=== PATIENT | female | born 1970 | race Caucasian/White ===

== ENCOUNTER 2017-02-19 18:12 | Inpatient (IN) | payer MEDICAID ==
[~2017-02-19] VITALS: Ht 160 cm; Wt 81.6 kg
[2017-02-19 18:12] VITALS: BP_SYST 149
[~2017-02-19 18:12] MED LIST: CLON0.5T4 PO; FLUO40CA8 PO; IBUP-1969 PO; OMEP40CA PO
[2017-02-19] MEDS ORDERED: ONDANSETRON HCL 4 MG/2 ML VIAL IVP ONE (19:00)
[2017-02-19] MEDS ORDERED: DIPHENHYDRAMINE INJ 50 MG/ML VIAL IVP ONE ×2 (19:00→21:15)
[2017-02-19] MEDS ORDERED: KETOROLAC TROMETHAMINE 30 MG VIAL IVP ONE ×2 (19:00→21:15)
[2017-02-19 19:31] LABS: BILIRUBIN,URINE NEGATIVE (NEGATIVE); BLOOD, URINE NEGATIVE (NEGATIVE); CLARITY/URINE SL HAZY (CLEAR); COLOR,URINE YELLOW (YELLOW); GLUCOSE,URINE NEGATIVE (NEGATIVE); KETONES,URINE NEGATIVE (NEGATIVE); LEUKOCYTE ESTERASE ,URINE NEGATIVE (NEGATIVE); NITRITE, URINE NEGATIVE (NEGATIVE); PROTEIN URINE NEGATIVE (NEGATIVE); UROBILINOGEN,URINE 0.2 (0.2-1.0)
[2017-02-19 19:38] LABS: BASOPHILS # (AUTO) 0.1 K/uL (0.0-0.2); BASOPHILS % (AUTO) 0.9 % (0.0-2.0); EOSINOPHILS # (AUTO) 0.2 K/uL (0.0-0.4); HEMATOCRIT 42.2 % (36-48); HEMOGLOBIN 13.7 g/dL (12.0-16.0); LYMPHOCYTES # (AUTO) 2.8 K/uL (1.0-5.5); MEAN CORPUSCULAR HEMOGLOBIN 27 pg (27-31); MEAN CORPUSCULAR HGB CONC 32 % (32-36); MEAN CORPUSCULAR VOLUME 83 fL (79.0-98.0); MONOCYTES # (AUTO) 0.7 K/uL (0.0-1.0); MONOCYTES % (AUTO) 8.4 % (1.7-9.3); NEUTROPHILS # (AUTO) 4.6 K/uL (1.8-7.7); NEUTROPHILS % (AUTO) 55.7 % (40.0-70.0); PLATELET COUNT (AUTO) 253 K/uL (130-430); RED BLOOD CELL COUNT(AUTO) 5.08 MIL/uL (4.2-6.2); RED CELL DISTRIBUTION WIDTH 12.6 % (9.0-15.0); WHITE BLOOD COUNT (AUTO) 8.4 K/uL (4.8-10.8)
[2017-02-19 19:41] LABS: CALCIUM 9.5 mg/dL (8.4-11.0); CREATININE 0.75 mg/dL (0.55-1.30); POTASSIUM 3.9 mmol/L (3.5-5.1)
[2017-02-19 19:45] LABS: ALBUMIN 3.8 g/dL (3.4-4.8); TOTAL BILIRUBIN 0.2 mg/dL (0.0-1.0); TOTAL PROTEIN, SERUM 7.9 g/dL (6.4-8.3)
[2017-02-19 19:45] LABS: BACTERIA,URINE FEW /HPF (None Seen); RBC,URINE NONE SEEN /HPF (0-3)
[2017-02-19 19:46] LABS: MUCUS,URINE None Seen /LPF (None Seen)
[2017-02-19 19:47] LABS: INR 0.9 (0.8-1.2); PROTHROMBIN TIME 9.9 SECS (9.5-12.5)
[2017-02-19] MEDS ORDERED: MORPHINE 4 MG/ML INJ. SYRINGE IVP ONE (21:15)
[2017-02-19] MEDS ORDERED: BUSP5TAB3 PO (22:15)
[2017-02-19] MEDS ORDERED: BUSP5TAB3 (22:15)
[2017-02-19] MEDS ORDERED: GABA-529 PO (22:15)
[2017-02-19] MEDS ORDERED: DIAZ5TAB4 PO (22:15)
[2017-02-19] MEDS ORDERED: MIRT15TA7 PO (22:15)
[2017-02-19 22:45] VITALS: BP_SYST 126
[2017-02-19] MEDS ORDERED: MORPHINE 4 MG/ML INJ. SYRINGE IVP PRN ×2 (23:30→23:45)
[2017-02-19] MEDS ORDERED: MORPHINE 2 MG/ML INJ. SYRINGE IVP PRN (23:30)
[2017-02-19] MEDS ORDERED: MIRT45TA5 PO (23:31)
[2017-02-19] MEDS ORDERED: MAG-AL HYDROX/SIMETH 30 ML UDC PO PRN (23:45)
[2017-02-19] MEDS ORDERED: MIRTAZAPINE 15 MG TABLET PO PRN (23:45)
[2017-02-19] MEDS ORDERED: IBUPROFEN 600 MG TABLET PO SCH (23:45)
[2017-02-19] MEDS ORDERED: ACETAMINOPHEN 325 MG TABLET PO PRN (23:45)
[2017-02-19] MEDS ORDERED: DIAZEPAM 5 MG TABLET (VALIUM) PO PRN (23:45)
[2017-02-19] MEDS ORDERED: clonazePAM 0.5 MG TABLET PO SCH (23:45)
[2017-02-19] MEDS ORDERED: ONDANSETRON HCL 4 MG/2 ML VIAL IVP PRN (23:45)
[2017-02-19] MEDS: PANTOPRAZOLE SODIUM 40 MG TAB PO SCH (23:59)
[2017-02-20 00:26] VITALS: BP_SYST 123
[2017-02-20 05:07] VITALS: BP_SYST 99
[2017-02-20] MEDS: ACETAMINOPHEN 325 MG TABLET PO PRN ×2 (05:19→14:24)
[2017-02-20 07:10] LABS: ALBUMIN 3.2 g/dL (3.4-4.8); CALCIUM 8.8 mg/dL (8.4-11.0); CREATININE 0.8 mg/dL (0.55-1.30); FREE T4 (FREE THYROXINE) 0.6 ng/dL (0.6-1.6); POTASSIUM 3.5 mmol/L (3.5-5.1); THYROID STIMULATING HORMONE 2.65 uIu/mL (0.34-4.82); TOTAL BILIRUBIN 0.5 mg/dL (0.0-1.0); TOTAL PROTEIN, SERUM 6.9 g/dL (6.4-8.3)
[2017-02-20 07:21] LABS: BASOPHILS % (AUTO) 0.6 % (0.0-2.0); EOSINOPHILS # (AUTO) 0.1 K/uL (0.0-0.4); EOSINOPHILS % (AUTO) 1.9 % (0.0-4.0); HEMATOCRIT 39.8 % (36-48); HEMOGLOBIN 13.1 g/dL (12.0-16.0); LYMPHOCYTES # (AUTO) 2.3 K/uL (1.0-5.5); LYMPHOCYTES % (AUTO) 41.4 % (20.5-51.5); MEAN CORPUSCULAR HEMOGLOBIN 27 pg (27-31); MEAN CORPUSCULAR HGB CONC 33 % (32-36); MEAN CORPUSCULAR VOLUME 82 fL (79.0-98.0); MONOCYTES # (AUTO) 0.4 K/uL (0.0-1.0); MONOCYTES % (AUTO) 7.6 % (1.7-9.3); NEUTROPHILS # (AUTO) 2.9 K/uL (1.8-7.7); NEUTROPHILS % (AUTO) 48.5 % (40.0-70.0); PLATELET COUNT (AUTO) 252 K/uL (130-430); RED BLOOD CELL COUNT(AUTO) 4.84 MIL/uL (4.2-6.2); RED CELL DISTRIBUTION WIDTH 13.1 % (9.0-15.0); WHITE BLOOD COUNT (AUTO) 5.7 K/uL (4.8-10.8)
[2017-02-20 08:00] VITALS: BP_SYST 118
[2017-02-20] MEDS: PANTOPRAZOLE SODIUM 40 MG TAB PO SCH (08:37)
[2017-02-20] MEDS: busPIRone HCL 5 MG TABLET PO SCH ×2 (08:38→14:21)
[2017-02-20 08:46] LABS: HCG,QUAL RESULT NEGATIVE (NEGATIVE)
[2017-02-20] MEDS ORDERED: OMEPRAZOLE 20 MG CAPSULE.DR (PriLOSEC) PO SCH (09:00)
[2017-02-20] MEDS ORDERED: GABAPENTIN 100 MG CAPSULE PO SCH (09:00)
[2017-02-20] MEDS ORDERED: FLUoxetine HCL 20 MG CAPSULE (PROzac) PO SCH (09:00)
[2017-02-20] MEDS: MORPHINE 2 MG/ML INJ. SYRINGE IVP PRN ×2 (10:07→18:15)
[2017-02-20 16:14] VITALS: BP_SYST 113
[2017-02-20 20:00] VITALS: BP_SYST 122
[2017-02-20 20:11] VITALS: BP_SYST 122
== END 2017-02-20 20:55 | disposition home or self-care (01) | DRG 203 ==
LOC: SED 18:12 → STU 22:06
PROVIDERS: ADMIT Internal Medicine; ATTEND Internal Medicine
DX: R07.89 Other chest pain (principal); F32.9 Major depressive disorder, single episode, unspecified; E66.9 Obesity, unspecified; F41.9 Anxiety disorder, unspecified; K21.9 Gastro-esophageal reflux disease without esophagitis; M47.812 Spondylosis without myelopathy or radiculopathy, cervical region; J04.2 Acute laryngotracheitis; M79.7 Fibromyalgia; G56.00 Carpal tunnel syndrome, unspecified upper limb; A08.4 Viral intestinal infection, unspecified; Z79.1 Long term (current) use of non-steroidal anti-inflammatories (NSAID); Z79.899 Other long term (current) drug therapy; Z90.49 Acquired absence of other specified parts of digestive tract; Z68.31 Body mass index [BMI] 31.0-31.9, adult; Z90.710 Acquired absence of both cervix and uterus; Z80.9 Family history of malignant neoplasm, unspecified
CPT/HCPCS: 36415; 70450-TC; 71010; 76700-TC; 80053; 80061; 81000-TC; 82550-TC; 83605; 83690-TC; 83735-TC; 83880; 84439; 84443-TC; 84484; 84703; 85025; 85379; 85610-TC; 85730-TC; 93005; 93306; 96374; 96375; 96376; 99285; J1200; J1885; J2270; J2405

== ENCOUNTER 2017-09-08 17:02 | Emergency (ER) | payer MEDICAID ==
[~2017-09-08] VITALS: Ht 160 cm; Wt 86.2 kg
[2017-09-08 17:02] VITALS: BP_SYST 155
[~2017-09-08 17:02] MED LIST changes: +BUSP5TAB3; +BUSP5TAB3 PO; +DIAZ5TAB4 PO; +GABA-529 PO; +MIRT45TA5 PO
[2017-09-08 17:50] LABS: BASOPHILS % (AUTO) 0.3 % (0.0-2.0); EOSINOPHILS # (AUTO) 0.1 K/uL (0.0-0.4); EOSINOPHILS % (AUTO) 1.5 % (0.0-4.0); HEMATOCRIT 41.6 % (36-48); HEMOGLOBIN 13.7 g/dL (12.0-16.0); LYMPHOCYTES # (AUTO) 1.9 K/uL (1.0-5.5); LYMPHOCYTES % (AUTO) 20.5 % (20.5-51.5); MEAN CORPUSCULAR HEMOGLOBIN 27 pg (27-31); MEAN CORPUSCULAR HGB CONC 33 % (32-36); MEAN CORPUSCULAR VOLUME 83 fL (79.0-98.0); MONOCYTES # (AUTO) 0.7 K/uL (0.0-1.0); MONOCYTES % (AUTO) 7.4 % (1.7-9.3); NEUTROPHILS # (AUTO) 6.4 K/uL (1.8-7.7); NEUTROPHILS % (AUTO) 70.3 % (40.0-70.0); PLATELET COUNT (AUTO) 237 K/uL (130-430); RED BLOOD CELL COUNT(AUTO) 5.03 MIL/uL (4.2-6.2); RED CELL DISTRIBUTION WIDTH 12.4 % (9.0-15.0); WHITE BLOOD COUNT (AUTO) 9.1 K/uL (4.8-10.8)
[2017-09-08 18:04] LABS: CREATININE 0.87 mg/dL (0.55-1.30); POTASSIUM 3.5 mmol/L (3.5-5.1)
[2017-09-08 18:10] LABS: ALBUMIN 3.8 g/dL (3.4-4.8); PROTHROMBIN TIME 9.8 SECS (9.5-12.5); TOTAL BILIRUBIN 0.2 mg/dL (0.0-1.0)
== END 2017-09-08 19:25 | disposition left against medical advice (07) ==
LOC: SED 17:02
DX: R07.89 Other chest pain (principal); Z53.21 Procedure and treatment not carried out due to patient leaving prior to being seen by health care provider
CPT/HCPCS: 36415; 71045; 80053; 83880; 84484; 85025; 85610-TC; 85730-TC; 93005; 99281

== ENCOUNTER 2018-02-19 15:03 | Emergency (ER) | payer MEDICAID ==
[~2018-02-19] VITALS: Ht 160 cm; Wt 84.4 kg
[~2018-02-19 15:03] MED LIST changes: +CLON0.5T12 PO; -CLON0.5T4 PO
[2018-02-19 15:10] VITALS: BP_SYST 124
--- NOTE | 2018-02-19 15:37 | NUR ---
Pt placed to ER waiting room in stable condition.
--- NOTE | 2018-02-19 16:45 | NUR ---
Pt to lab for blood draw. Pt stable.
--- NOTE | 2018-02-19 16:55 | NUR ---
Pt placed to ER bed 05, to gown with c/o urinary frequency, hesitency, pressure and pain to back x 3 days. Denies c/o N/V/D. Denies burning urinations or discharge.
--- NOTE | 2018-02-19 17:00 | NUR ---
Trista leone in [facility] - 02/19/18 at 1919 by SDEDAJ Pt name called to bring back to room, pt not in ER waiting room or outside of ER
[2018-02-19 17:02] LABS: BILIRUBIN,URINE NEGATIVE (NEGATIVE); BLOOD, URINE NEGATIVE (NEGATIVE); CLARITY/URINE CLEAR (CLEAR); COLOR,URINE YELLOW (YELLOW); GLUCOSE,URINE NEGATIVE (NEGATIVE); KETONES,URINE NEGATIVE (NEGATIVE); LEUKOCYTE ESTERASE ,URINE NEGATIVE (NEGATIVE); NITRITE, URINE NEGATIVE (NEGATIVE); PH,URINE 5.5 (5.0-8.0); PROTEIN URINE NEGATIVE (NEGATIVE); UROBILINOGEN,URINE 0.2 (0.2-1.0)
[2018-02-19] MEDS ORDERED: ACETAMINOPHEN 500 MG TABLET PO ONE (17:15)
--- NOTE | 2018-02-19 17:15 | NUR ---
Dr. Carreno at bedside.
[2018-02-19 17:37] LABS: BASOPHILS # (AUTO) 0.1 K/uL (0.0-0.2); BASOPHILS % (AUTO) 1.1 % (0.0-2.0); EOSINOPHILS # (AUTO) 0.2 K/uL (0.0-0.4); EOSINOPHILS % (AUTO) 2.7 % (0.0-4.0); HEMATOCRIT 39.9 % (36-48); HEMOGLOBIN 13.1 g/dL (12.0-16.0); LYMPHOCYTES # (AUTO) 2.5 K/uL (1.0-5.5); LYMPHOCYTES % (AUTO) 39.1 % (20.5-51.5); MEAN CORPUSCULAR HEMOGLOBIN 27 pg (27-31); MEAN CORPUSCULAR HGB CONC 33 % (32-36); MEAN CORPUSCULAR VOLUME 83 fL (79.0-98.0); MONOCYTES # (AUTO) 0.4 K/uL (0.0-1.0); MONOCYTES % (AUTO) 6.2 % (1.7-9.3); NEUTROPHILS # (AUTO) 3.2 K/uL (1.8-7.7); NEUTROPHILS % (AUTO) 50.9 % (40.0-70.0); PLATELET COUNT (AUTO) 273 K/uL (130-430); RED BLOOD CELL COUNT(AUTO) 4.81 MIL/uL (4.2-6.2); RED CELL DISTRIBUTION WIDTH 12.4 % (9.0-15.0); WHITE BLOOD COUNT (AUTO) 6.4 K/uL (4.8-10.8)
[2018-02-19 17:43] LABS: CALCIUM 8.6 mg/dL (8.4-11.0); CREATININE 0.86 mg/dL (0.55-1.30)
--- NOTE | 2018-02-19 17:45 | NUR ---
Pt left ER without signing AMA.
[2018-02-19 17:49] LABS: ALBUMIN 3.6 g/dL (3.4-4.8); TOTAL BILIRUBIN 0.2 mg/dL (0.0-1.0)
--- NOTE | 2018-02-19 17:55 | NUR ---
Trista leone in [facility] - 02/19/18 at 1919 by SDEDAJ Pt name called to bring back to room, pt not in ER waiting room or outside of ER
--- NOTE | 2018-02-19 18:00 | NUR ---
Trista leone in [facility] - 02/19/18 at 1919 by SDEDAJ Pt name called to bring back to room, pt not in ER waiting room or outside of ER
== END 2018-02-19 17:45 | disposition left against medical advice (07) ==
LOC: SED 15:03
DX: R30.0 Dysuria (principal); K21.9 Gastro-esophageal reflux disease without esophagitis; F41.9 Anxiety disorder, unspecified; F32.9 Major depressive disorder, single episode, unspecified; Z90.49 Acquired absence of other specified parts of digestive tract; Z90.710 Acquired absence of both cervix and uterus; Z79.899 Other long term (current) drug therapy
CPT/HCPCS: 36415; 74021; 80053; 81003; 83690-TC; 85025; 99285

== ENCOUNTER 2018-03-26 09:59 | Emergency (ER) | payer MEDICAID ==
[~2018-03-26] VITALS: Ht 160 cm; Wt 81.6 kg
[2018-03-26 10:05] VITALS: BP_SYST 124
--- NOTE | 2018-03-26 10:08 | NUR ---
Pt placed to ER bed 03. Pt here for medication refill of Mirtazapine r/t insomnia. Pt states that she is unable to see her Psychiatrist until next Friday.
--- NOTE | 2018-03-26 10:19 | NUR ---
ER Dr. Kaur at bedside examining patient.
[2018-03-26 10:46] VITALS: BP_SYST 128
--- NOTE | 2018-03-26 10:46 | NUR ---
Patient given written and verbal discharge instructions and verbalizes understanding. ER MD discussed with patient the results and treatment provided. Patient in stable condition. ID arm band removed. Rx of Mirtazapine given. Patient educated on pain management and to follow up with PMD. Pain Scale 0/10. Opportunity for questions provided and answered. Medication side effect fact sheet provided.
== END 2018-03-26 10:46 | disposition home or self-care (01) ==
LOC: SED 09:59
DX: G47.00 Insomnia, unspecified (principal); F41.8 Other specified anxiety disorders; K21.9 Gastro-esophageal reflux disease without esophagitis; Z76.0 Encounter for issue of repeat prescription; Z79.899 Other long term (current) drug therapy; Z90.49 Acquired absence of other specified parts of digestive tract
CPT/HCPCS: 99283

== ENCOUNTER 2018-05-04 12:12 | Emergency (ER) | payer MEDICAID ==
[~2018-05-04] VITALS: Ht 160 cm; Wt 83.5 kg
[2018-05-04 12:18] VITALS: BP_SYST 129
[2018-05-04] MEDS ORDERED: NACL 0.9% 1,000 ML IV ONE (12:32)
[2018-05-04] MEDS ORDERED: ONDANSETRON HCL 4 MG/2 ML VIAL IVP ONE (12:45)
[2018-05-04 12:55] LABS: BASOPHILS % (AUTO) 0.7 % (0.0-2.0); EOSINOPHILS # (AUTO) 0.1 K/uL (0.0-0.4); EOSINOPHILS % (AUTO) 0.8 % (0.0-4.0); HEMATOCRIT 40.2 % (36-48); HEMOGLOBIN 12.9 g/dL (12.0-16.0); LYMPHOCYTES # (AUTO) 1.4 K/uL (1.0-5.5); LYMPHOCYTES % (AUTO) 21.6 % (20.5-51.5); MEAN CORPUSCULAR HEMOGLOBIN 26 pg (27-31); MEAN CORPUSCULAR HGB CONC 32 % (32-36); MEAN CORPUSCULAR VOLUME 83 fL (79.0-98.0); MONOCYTES # (AUTO) 0.4 K/uL (0.0-1.0); MONOCYTES % (AUTO) 6.2 % (1.7-9.3); NEUTROPHILS # (AUTO) 4.7 K/uL (1.8-7.7); NEUTROPHILS % (AUTO) 70.7 % (40.0-70.0); PLATELET COUNT (AUTO) 315 K/uL (130-430); RED BLOOD CELL COUNT(AUTO) 4.87 MIL/uL (4.2-6.2); RED CELL DISTRIBUTION WIDTH 12.4 % (9.0-15.0); WHITE BLOOD COUNT (AUTO) 6.6 K/uL (4.8-10.8)
[2018-05-04 13:00] LABS: BILIRUBIN,URINE NEGATIVE (NEGATIVE); BLOOD, URINE NEGATIVE (NEGATIVE); CLARITY/URINE CLEAR (CLEAR); COLOR,URINE YELLOW (YELLOW); GLUCOSE,URINE NEGATIVE (NEGATIVE); KETONES,URINE NEGATIVE (NEGATIVE); LEUKOCYTE ESTERASE ,URINE NEGATIVE (NEGATIVE); NITRITE, URINE NEGATIVE (NEGATIVE); PROTEIN URINE NEGATIVE (NEGATIVE); UROBILINOGEN,URINE 0.2 (0.2-1.0)
[2018-05-04 13:09] LABS: CALCIUM 9.1 mg/dL (8.4-11.0); CREATININE 0.86 mg/dL (0.55-1.30); POTASSIUM 3.9 mmol/L (3.5-5.1)
[2018-05-04 13:13] LABS: ALBUMIN 3.6 g/dL (3.4-4.8); TOTAL BILIRUBIN 0.3 mg/dL (0.0-1.0)
[2018-05-04 14:14] VITALS: BP_SYST 129
== END 2018-05-04 14:35 | disposition home or self-care (01) ==
LOC: SED 12:12
DX: K59.00 Constipation, unspecified (principal); K21.9 Gastro-esophageal reflux disease without esophagitis; F41.9 Anxiety disorder, unspecified; F32.9 Major depressive disorder, single episode, unspecified; Z90.49 Acquired absence of other specified parts of digestive tract; Z90.710 Acquired absence of both cervix and uterus; Z79.899 Other long term (current) drug therapy
CPT/HCPCS: 36415; 74021; 80053; 81003; 81025; 83690; 85025; 96374; 99285; J2405

== ENCOUNTER 2019-01-09 16:56 | Emergency (ER) | payer MEDICAID ==
[~2019-01-09] VITALS: Ht 160 cm; Wt 81.6 kg
[~2019-01-09 16:56] MED LIST changes: -MIRT45TA5 PO; +MIRT45TA83 PO
[2019-01-09 17:13] VITALS: BP_SYST 124
--- NOTE | 2019-01-09 17:18 | NUR ---
Patient to ER bed 2 to gown for evaluation. Side rails up. Report given to Felisha IYER.
--- NOTE | 2019-01-09 17:25 | NUR ---
Patient presented to ER with c/o epigastric pain. Patienr states she has had intermittent abdominal & epigastric pain x2 months but pain increased today. Patient states she has a recent diagnosisi of Haital hernia per Dr. Alex. Patient A&Ox4, skin pink, nausea, denies v/D, pain 8/10.
[2019-01-09] MEDS ORDERED: MAG HYDROX/AL HYDROX/SIMETH 30 ML, DICYCLOMINE HCL 20 MG, LIDOCAINE VISCOUS 2% 15ML (PO... PO ONE ×3 (17:45)
[2019-01-09] MEDS ORDERED: ONDANSETRON 4 MG ODT TAB PO ONE (17:45)
[2019-01-09] MEDS ORDERED: DICYCLOMINE HCL 10 MG/5 ML SOLUTION ONE (17:53)
[2019-01-09] MEDS ORDERED: MAG-AL HYDROX/SIMETH 30 ML UDC ONE (17:53)
--- NOTE | 2019-01-09 18:01 | NUR ---
ER Dr. Mcneal at bedside examining patient.
[2019-01-09 18:20] VITALS: BP_SYST 124
--- NOTE | 2019-01-09 18:20 | NUR ---
Patient given written and verbal discharge instructions and verbalizes understanding. ER MD discussed with patient the results and treatment provided. Patient in stable condition. ID arm band removed. Rx of given. Patient educated on pain management and to follow up with PMD. Pain Scale 1/10 tolerable for pt. Opportunity for questions provided and answered. Medication side effect fact sheet provided.
== END 2019-01-09 18:20 | disposition home or self-care (01) ==
LOC: SED 16:56
DX: R10.13 Epigastric pain (principal); K21.9 Gastro-esophageal reflux disease without esophagitis; F41.9 Anxiety disorder, unspecified; F32.9 Major depressive disorder, single episode, unspecified; Z90.49 Acquired absence of other specified parts of digestive tract; Z90.710 Acquired absence of both cervix and uterus; Z79.899 Other long term (current) drug therapy
CPT/HCPCS: 99283; Q0162

== ENCOUNTER 2019-08-15 09:40 | Emergency (ER) | payer MEDICAID ==
[~2019-08-15] VITALS: Ht 160 cm; Wt 77.1 kg
[2019-08-15 10:01] VITALS: BP_SYST 131
--- NOTE | 2019-08-15 11:30 | NUR ---
Patient to ER bed h2 to gown for evaluation. Side rails up. Report given to Kim IYER.
--- NOTE | 2019-08-15 11:33 | NUR ---
ER at bedside examining patient.
--- NOTE | 2019-08-15 11:40 | NUR ---
pt arrives from w/ cough and congestion unrelived by OTC meds.
--- NOTE | 2019-08-15 11:55 | NUR ---
Patient given written and verbal discharge instructions and verbalizes understanding. ER MD discussed with patient the results and treatment provided. Patient in stable condition. ID arm band removed. Rx of chloraseptic, Tylenol and Zithromax given. Patient educated on pain management and to follow up with PMD. Pain Scale 0/10. Opportunity for questions provided and answered. Medication side effect fact sheet provided.
[2019-08-15 12:00] VITALS: BP_SYST 131
== END 2019-08-15 12:00 | disposition home or self-care (01) ==
LOC: SED 09:40
DX: J40 Bronchitis, not specified as acute or chronic (principal); J02.8 Acute pharyngitis due to other specified organisms; B97.89 Other viral agents as the cause of diseases classified elsewhere; K21.9 Gastro-esophageal reflux disease without esophagitis; F41.9 Anxiety disorder, unspecified; Z87.19 Personal history of other diseases of the digestive system; Z79.899 Other long term (current) drug therapy
CPT/HCPCS: 36415; 86710; 99283

== ENCOUNTER 2019-12-22 16:30 | Emergency (ER) | payer MEDICAID ==
[~2019-12-22] VITALS: Ht 160 cm; Wt 79.4 kg
[2019-12-22 16:43] VITALS: BP_SYST 140
[2019-12-22] MEDS ORDERED: DICYCLOMINE HCL 10 MG/5 ML SOLUTION PO ONE (18:00)
[2019-12-22] MEDS ORDERED: LIDOCAINE VISCOUS 2%, 15 ML UDC MM ONE (18:00)
[2019-12-22] MEDS ORDERED: MAG-AL HYDROX/SIMETH 30 ML UDC PO ONE (18:00)
[2019-12-22] MEDS ORDERED: KETOROLAC TROMETHAMINE 60 MG/2 ML VIAL IM ONE (18:00)
[2019-12-22 19:04] VITALS: BP_SYST 138
== END 2019-12-22 19:04 | disposition home or self-care (01) ==
LOC: SED 16:30
DX: N20.0 Calculus of kidney (principal); K21.9 Gastro-esophageal reflux disease without esophagitis; F41.9 Anxiety disorder, unspecified; Z79.899 Other long term (current) drug therapy
CPT/HCPCS: 74176; 96372; 99284; J1885; J2001

== ENCOUNTER 2020-02-02 12:06 | Emergency (ER) | payer MEDICAID, SELFPAY ==
[~2020-02-02] VITALS: Ht 160 cm; Wt 79.4 kg
[2020-02-02 12:35] VITALS: BP_SYST 114
[2020-02-02] MEDS ORDERED: LORazepam 1 MG TABLET PO ONE (13:00)
[2020-02-02 14:20] LABS: BASOPHILS % (AUTO) 0.7 % (0.0-2.0); EOSINOPHILS # (AUTO) 0.1 K/uL (0.0-0.4); EOSINOPHILS % (AUTO) 1.1 % (0.0-4.0); HEMATOCRIT 41.8 % (36-48); HEMOGLOBIN 13.6 g/dL (12.0-16.0); LYMPHOCYTES # (AUTO) 1.6 K/uL (1.0-5.5); LYMPHOCYTES % (AUTO) 28.3 % (20.5-51.5); MEAN CORPUSCULAR HEMOGLOBIN 27 pg (27-31); MEAN CORPUSCULAR HGB CONC 32 % (32-36); MEAN CORPUSCULAR VOLUME 84 fL (79.0-98.0); MONOCYTES # (AUTO) 0.5 K/uL (0.0-1.0); MONOCYTES % (AUTO) 7.9 % (1.7-9.3); NEUTROPHILS # (AUTO) 3.5 K/uL (1.8-7.7); PLATELET COUNT (AUTO) 277 K/uL (130-430); RED BLOOD CELL COUNT(AUTO) 5.01 MIL/uL (4.2-6.2); RED CELL DISTRIBUTION WIDTH 13.7 % (9.0-15.0); WHITE BLOOD COUNT (AUTO) 5.7 K/uL (4.8-10.8)
[2020-02-02 14:27] LABS: CALCIUM 9.2 mg/dL (8.4-11.0); CREATININE 0.76 mg/dL (0.55-1.30); POTASSIUM 4.3 mmol/L (3.5-5.1)
[2020-02-02 14:32] LABS: ALBUMIN 3.6 g/dL (3.4-4.8); TOTAL BILIRUBIN 0.3 mg/dL (0.0-1.0)
[2020-02-02 15:10] VITALS: BP_SYST 113
== END 2020-02-02 15:10 | disposition home or self-care (01) ==
LOC: SED 12:06
DX: G44.209 Tension-type headache, unspecified, not intractable (principal); B34.9 Viral infection, unspecified; K21.9 Gastro-esophageal reflux disease without esophagitis; F41.9 Anxiety disorder, unspecified; Z90.710 Acquired absence of both cervix and uterus; Z79.899 Other long term (current) drug therapy; Z20.828 Contact with and (suspected) exposure to other viral communicable diseases
CPT/HCPCS: 36415; 71045; 80053; 82550; 83880; 84484; 85025; 93005; 99285; C9803; U0003

== ENCOUNTER 2020-06-15 09:51 | Emergency (ER) | payer MEDICAID, SELFPAY ==
[~2020-06-15] VITALS: Ht 160 cm; Wt 71.7 kg
[~2020-06-15 09:51] MED LIST changes: -CLON0.5T12 PO; +CLON0.5T4 PO
[2020-06-15 10:07] VITALS: BP_SYST 100
[2020-06-15 10:38] VITALS: BP_SYST 100
== END 2020-06-15 10:39 | disposition home or self-care (01) ==
LOC: SED 09:51
DX: B34.9 Viral infection, unspecified (principal); K21.9 Gastro-esophageal reflux disease without esophagitis; F41.9 Anxiety disorder, unspecified; Z79.899 Other long term (current) drug therapy; Z20.828 Contact with and (suspected) exposure to other viral communicable diseases
CPT/HCPCS: 99283; U0003; C9803

== ENCOUNTER 2020-07-11 10:14 | Emergency (ER) | payer MEDICAID, SELFPAY ==
[~2020-07-11] VITALS: Ht 160 cm; Wt 70.3 kg
[2020-07-11 10:14] VITALS: BP_SYST 131
== END 2020-07-11 11:05 | disposition home or self-care (01) ==
LOC: SED 10:14
DX: N39.0 Urinary tract infection, site not specified (principal); F41.9 Anxiety disorder, unspecified; K21.9 Gastro-esophageal reflux disease without esophagitis; Z87.442 Personal history of urinary calculi; Z90.49 Acquired absence of other specified parts of digestive tract; Z90.710 Acquired absence of both cervix and uterus; Z79.899 Other long term (current) drug therapy
CPT/HCPCS: 81002; 99283

== ENCOUNTER 2020-07-23 11:21 | Emergency (ER) | payer MEDICAID, SELFPAY ==
[~2020-07-23] VITALS: Ht 160 cm; Wt 7.3 kg
[2020-07-23 12:25] VITALS: BP_SYST 98
[2020-07-23 13:22] VITALS: BP_SYST 100
== END 2020-07-23 13:22 | disposition home or self-care (01) ==
LOC: SED 11:21
DX: N39.0 Urinary tract infection, site not specified (principal); K21.9 Gastro-esophageal reflux disease without esophagitis; F32.9 Major depressive disorder, single episode, unspecified; F41.9 Anxiety disorder, unspecified; Z20.822 Contact with and (suspected) exposure to COVID-19; Z79.899 Other long term (current) drug therapy
CPT/HCPCS: 87086; 99283; U0003

== ENCOUNTER 2020-07-30 11:07 | Emergency (ER) | payer MEDICAID, SELFPAY ==
[~2020-07-30] VITALS: Ht 167.6 cm; Wt 77.1 kg
[2020-07-30 11:20] VITALS: BP_SYST 147
[2020-07-30] MEDS ORDERED: KETOROLAC TROMETHAMINE 60 MG/2 ML VIAL IM ONE (11:45)
[2020-07-30 12:04] LABS: BILIRUBIN,URINE NEGATIVE (NEGATIVE); CLARITY/URINE CLEAR (CLEAR); COLOR,URINE YELLOW (YELLOW); GLUCOSE,URINE NEGATIVE (NEGATIVE); KETONES,URINE NEGATIVE (NEGATIVE); LEUKOCYTE ESTERASE ,URINE NEGATIVE (NEGATIVE); NITRITE, URINE NEGATIVE (NEGATIVE); PROTEIN URINE NEGATIVE (NEGATIVE); UROBILINOGEN,URINE 0.2 (0.2-1.0)
[2020-07-30 12:07] LABS: BLOOD, URINE TRACE (NEGATIVE)
[2020-07-30 12:23] LABS: BACTERIA,URINE RARE /HPF (None Seen); WBC,URINE 0-3 /HPF (0-3)
[2020-07-30 12:28] LABS: BASOPHILS # (AUTO) 0.1 K/uL (0.0-0.2); BASOPHILS % (AUTO) 0.9 % (0.0-2.0); EOSINOPHILS # (AUTO) 0.1 K/uL (0.0-0.4); EOSINOPHILS % (AUTO) 1.1 % (0.0-4.0); HEMATOCRIT 37.3 % (36-48); HEMOGLOBIN 12.2 g/dL (12.0-16.0); LYMPHOCYTES # (AUTO) 1.5 K/uL (1.0-5.5); LYMPHOCYTES % (AUTO) 25.9 % (20.5-51.5); MEAN CORPUSCULAR HEMOGLOBIN 27 pg (27-31); MEAN CORPUSCULAR HGB CONC 33 % (32-36); MEAN CORPUSCULAR VOLUME 83 fL (79.0-98.0); MONOCYTES # (AUTO) 0.5 K/uL (0.0-1.0); MONOCYTES % (AUTO) 8.7 % (1.7-9.3); NEUTROPHILS # (AUTO) 3.7 K/uL (1.8-7.7); NEUTROPHILS % (AUTO) 63.4 % (40.0-70.0); PLATELET COUNT (AUTO) 463 K/uL (130-430); RED CELL DISTRIBUTION WIDTH 13.3 % (9.0-15.0); WHITE BLOOD COUNT (AUTO) 5.8 K/uL (4.8-10.8)
[2020-07-30 12:30] LABS: POTASSIUM 4.1 mmol/L (3.5-5.1)
[2020-07-30 12:37] LABS: ALBUMIN 3.2 g/dL (3.4-4.8); TOTAL BILIRUBIN 0.1 mg/dL (0.0-1.0)
[2020-07-30 13:59] VITALS: BP_SYST 142
== END 2020-07-30 13:59 | disposition home or self-care (01) ==
LOC: SED 11:07
DX: R10.9 Unspecified abdominal pain (principal); K21.9 Gastro-esophageal reflux disease without esophagitis; F32.9 Major depressive disorder, single episode, unspecified; F41.9 Anxiety disorder, unspecified; Z79.899 Other long term (current) drug therapy
CPT/HCPCS: 36415; 74150; 76376; 80053; 81000; 83690; 85025; 96372; 99284; J1885

== ENCOUNTER 2020-08-16 21:25 | Emergency (ER) | payer MEDICAID ==
[~2020-08-16] VITALS: Ht 167.6 cm; Wt 77.1 kg
[2020-08-16 21:40] VITALS: BP_SYST 134
--- NOTE | 2020-08-16 21:40 | NUR ---
Patient ambulatory to bed 2 for evaluation. Patient changed to hospital gown and hooked to cont monitor
--- NOTE | 2020-08-16 21:45 | NUR ---
ED MD CASTREJON AT BEDSIDE EVALUATING PT
--- NOTE | 2020-08-16 21:45 | NUR ---
PT BIB SELF A&Ox3 AMBULATORY WITHOUT ASSISTANCE PT IS EXPERINECING ANXIETY AND WORRIED ABOUT HER HEART RATE PT VITAL SIGNS STABLE WILL CONTINUE TO MONITOR. HISTORY OF ANXIETY NO NOWN ALLERGIES. PT DENIES CHEST PAIN DENIES SHORTNESS OF BREATH.
[2020-08-16] MEDS ORDERED: LORazepam 2 MG/ML VIAL IVP ONE (22:00)
[2020-08-16] MEDS ORDERED: NS 500 ML IV ONE (22:00)
[2020-08-16 22:25] VITALS: BP_SYST 122
--- NOTE | 2020-08-16 22:25 | NUR ---
Patient given written and verbal discharge instructions and verbalizes understanding. ER MD CASTREJON discussed with patient the results and treatment provided. Patient in stable condition. ID arm band removed. IV catheter removed intact and dressing applied, no active bleeding. Patient educated on pain management and to follow up with PMD. Pain Scale 0/10. Opportunity for questions provided and answered. Medication side effect fact sheet provided.
== END 2020-08-16 22:25 | disposition home or self-care (01) ==
LOC: SED 21:25
DX: F41.9 Anxiety disorder, unspecified (principal); K21.9 Gastro-esophageal reflux disease without esophagitis; Z90.49 Acquired absence of other specified parts of digestive tract; Z79.899 Other long term (current) drug therapy
CPT/HCPCS: 96374; 99283; J7040

== ENCOUNTER 2022-02-09 17:38 | Emergency (ER) | payer MEDICAID ==
[~2022-02-09] VITALS: Ht 160 cm; Wt 62.6 kg
[2022-02-09 17:50] VITALS: BP_SYST 115
--- NOTE | 2022-02-09 20:36 | NUR ---
PT CALLED IN LOBBY, NO RESPONSE
== END 2022-02-09 20:36 | disposition left against medical advice (07) ==
LOC: SED 17:38
DX: H92.02 Otalgia, left ear (principal); Z53.21 Procedure and treatment not carried out due to patient leaving prior to being seen by health care provider

== ENCOUNTER 2023-04-05 22:46 | Emergency (ER) | payer MEDICAID ==
[~2023-04-05] VITALS: Ht 160 cm; Wt 65.3 kg
[2023-04-05 22:50] VITALS: BP_SYST 130; PULSE 59; RESP 11; TEMP 97.8; O2SAT 96
[2023-04-06] MEDS ORDERED: MAG-AL HYDROX/SIMETH 30 ML UDC PO ONE
[2023-04-06] MEDS ORDERED: HYDROcodone/ACETAMIN 5-325 MG TAB (NORCO/ VICODIN) PO ONE
[2023-04-06 00:40] LABS: BASOPHILS % (AUTO) 0.9 % (0.0-2.0); EOSINOPHILS # (AUTO) 0.2 K/uL (0.0-0.4); EOSINOPHILS % (AUTO) 3.1 % (0.0-4.0); HEMATOCRIT 36.8 % (36-48); HEMOGLOBIN 11.8 g/dL (12.0-16.0); LYMPHOCYTES # (AUTO) 2.7 K/uL (1.0-5.5); LYMPHOCYTES % (AUTO) 50.4 % (20.5-51.5); MEAN CORPUSCULAR HEMOGLOBIN 26 pg (27-31); MEAN CORPUSCULAR HGB CONC 32 % (32-36); MEAN CORPUSCULAR VOLUME 82 fL (79.0-98.0); MONOCYTES # (AUTO) 0.4 K/uL (0.0-1.0); MONOCYTES % (AUTO) 7.3 % (1.7-9.3); NEUTROPHILS # (AUTO) 2.1 K/uL (1.8-7.7); NEUTROPHILS % (AUTO) 38.3 % (40.0-70.0); PLATELET COUNT (AUTO) 216 K/uL (130-430); RED BLOOD CELL COUNT(AUTO) 4.48 MIL/uL (4.2-6.2); RED CELL DISTRIBUTION WIDTH 13.7 % (9.0-15.0); WHITE BLOOD COUNT (AUTO) 5.4 K/uL (4.8-10.8)
[2023-04-06 00:46] LABS: ANION GAP 8 (5-15); CALCIUM 8.8 mg/dL (8.4-11.0); CARBON DIOXIDE 30 mmol/L (23-29); CHLORIDE 102 mmol/L (98-107); CREATININE 0.89 mg/dL (0.55-1.30); GFR AFRICAN AMERICAN 85 mL/min (>90); GLUCOSE 102 mg/dL (74-106); SODIUM SERUM 140 mmol/L (136-145); UREA NITROGEN, BLOOD 13 mg/dL (8-21)
[2023-04-06 00:47] LABS: GFR NON AFRICAN-AMERICAN 70 mL/min (>90)
[2023-04-06 00:53] LABS: ALANINE AMINOTRANSFERASE 25 U/L (12-78); ALBUMIN 3.6 g/dL (3.4-4.8); ASPARTATE AMINOTRANSFERASE 19 U/L (10-37); LIPASE 199 U/L (73-393); TOTAL BILIRUBIN 0.3 mg/dL (0.0-1.0); TOTAL PROTEIN, SERUM 7.2 g/dL (6.4-8.3)
[2023-04-06] MEDS ORDERED: ACET-2634 PO (01:30)
[2023-04-06 01:47] VITALS: BP_SYST 93; PULSE 61; RESP 14; TEMP 98.3; O2SAT 98
== END 2023-04-06 01:48 | disposition home or self-care (01) ==
LOC: SED 22:46
DX: R07.9 Chest pain, unspecified (principal); R42 Dizziness and giddiness; K21.9 Gastro-esophageal reflux disease without esophagitis; Z79.899 Other long term (current) drug therapy
CPT/HCPCS: 36415; 71045; 80053; 83690; 84484; 85025; 85379; 93005; 99285

== ENCOUNTER 2023-06-23 18:07 | Emergency (ER) | payer MEDICAID ==
[~2023-06-23] VITALS: Ht 160 cm; Wt 64.4 kg
[~2023-06-23 18:07] MED LIST changes: +ACET-2634 PO
[2023-06-23 18:23] VITALS: BP_SYST 149; PULSE 81; RESP 20; TEMP 98.3; O2SAT 97
[2023-06-23] MEDS ORDERED: KETOROLAC TROMETHAMINE 30 MG VIAL IVP ONE (19:45)
[2023-06-23] MEDS ORDERED: DIPHENHYDRAMINE INJ 50 MG/ML VIAL IVP ONE (19:45)
[2023-06-23] MEDS ORDERED: METOCLOPRAMIDE HCL 10 MG/2 ML VIAL IVP ONE (19:45)
[2023-06-23] MEDS ORDERED: IBUP-1969 PO (20:50)
[2023-06-23] MEDS ORDERED: TRAM50TA2 PO (20:50)
[2023-06-23 21:05] VITALS: BP_SYST 109; PULSE 62; RESP 20; TEMP 97.7; O2SAT 96
== END 2023-06-23 21:05 | disposition home or self-care (01) ==
LOC: SED 18:07
DX: M54.12 Radiculopathy, cervical region (principal); K21.9 Gastro-esophageal reflux disease without esophagitis; Z79.899 Other long term (current) drug therapy
CPT/HCPCS: 99285; 70450; 96374; 96375; 72125; 76376; J1200; J1885; J2765